=== PATIENT | male | born 1960 | race Caucasian/White ===

== ENCOUNTER 2023-10-26 14:12 | Emergency (ER) | payer OTHER, SELFPAY ==
[2023-10-26] VITALS (20 sets, daily range): BP systolic 84–130; BP diastolic 69–90; PULSE 63–84; RESP 12–20; TEMP 36.3; O2SAT 93–100
--- NOTE | ~2023-10-26 | XR_ITS ---
Portable chest x-ray Comparison: None Clinical History: Nausea, vomiting, dizziness Findings: Lungs are clear, without focal consolidation or pleural effusion. Cardiomediastinal silho uette is stable. Bones and soft tissues are unremarkable. Impression: Clear lungs. Reviewed, dictated and finalized at location . Impression: Clear lungs.
--- NOTE | ~2023-10-26 | CT_ITS ---
Non-contrast Head CT History: Syncope Technique: Axial non-contrast imaging of the brain was performed. Dose reduction technique was used on this scan by utilizing automated exposure control and iterative reconstruction technique. The dose -length product (DLP) was 681.00 mGy-cm. Findings: There is no evidence of intracranial hemorrhage, mass lesion, or acute infarct. Brain par enchyma appears normal. The ventricles and subarachnoid spaces are normal in size. The calvarium ap pears normal. The visualized paranasal sinuses and mastoid air cells are clear. Impression: No significant abnormality seen. Reviewed, dictated and finalized at location . Impression: No significant abnormality seen.
--- NOTE | 2023-10-26 14:25 | ED.GENADULT ---
HPI - General Adult General Chief complaint: Nausea/Vomiting/Diarrhea Stated complaint: weakness; dizzy Source: patient Mode of arrival: ambulatory Limitations: no limitations History of Present Illness HPI narrative: 63-year-old white male brought by EMS with low blood pressure vomiting nausea diaphoresis. EMS stated he vomited twice with in the ambulance on the way to the hospital he was given Zofran 4 mg IV was oriented x4 and alert blood pressure is 93/63 with a pulse of 70 normal sinus rhythm O2 sat was 94% he start him on normal saline 125 cc an hour his blood sugar was 109. He said they picked him up at his sister's house. Patient states he has been dizzy the last week and half. Denies any diarrhea he had a normal bowel movement this morning. It started about a week and half ago he felt dizzy could not stand felt really tired and exhausted. He said he had drunk some jennifer D unoriented drinking he said his heart was fast. Few days later he drinks more sun ED and happened again. Denies any cough shortness of breath swelling lumps or bumps sore throat. He has had a little bit of runny nose. Denies any pain. Denies any problems voiding or stooling. patient feels tired and fatigued. Denies any rash or itching bleeding or bruising or any other complaints . sister came in said that he came over at 10:30 a.m. this morning felt dizzy. Had not felt well for the last 4 days but was eating twice a day per his usual. They were eating a good meal and he suddenly felt dizzy he felt like he had a laid down which he did for just a little bit and then went back to the dinner table start EEA get then suddenly he started to feel queasy he started to closes eyes started to shake and lean over and lose his seated position. Family helped him to the ground he had a generalized seizure for 2-3 minutes was not incontinent did not bite his tongue. They put a blood pressure cuff on him it was low they called 911 and EMS found him with a blood pressure 93/63 diaphoretic nauseous patient had vomited the gravy and check in that he had eaten. Denies any palpitations or fast heart rate. Patient's remember that a couple months ago he did have a period where he felt dizzy and almost passed out. Patient has no history of seizures or family history of seizures. past medical history: On disability and retired for anxiety depression memory problems posttraumatic stress disorder. When off Xanax and August he had been taking it 3 times a day after 10 years he just decided to stop. Smokes occasional THC denies alcohol use. Smokes 1 pack a day. Allergies no known drug allergies Related Data Home Medications Medication Instructions Recorded Confirmed No Home Medications 10/26/23 10/26/23 Allergies Allergy/AdvReac Type Severity Reaction Status Date / Time No Known Allergies Allergy Verified 10/26/23 14:43 Review of Systems Review of Systems: All systems reviewed & are unremarkable except as noted in HPI and below Medical Decision Making MDM Narrative Medical decision making narrative: ? Patient placed in room: 2 by EMS ? History and physical was performed. Urinalysis specific gravity of 1.015 20-29 hyaline and granular casts, urine drug screen was positive for THC H&H was 13.139.5 with normal WBC and platelets. Normal CMP troponin lactic acid. chest x-ray and CT head showed no active disease Independent Historian: EMS sugar was 109 External Source Review: Differential Dx includes but not limited to: tumor brain electrolyte disturbance dehydration, substance of bruits cardiac arrhythmia Medications were Reviewed: on any home meds Medications given: Zofran 4, normal saline 2 L fluid, blood pressure at 3:58 p.m. was 107/81 with a map of 90 and a pulse 70. orthostatics prior to discharge were fine. Independently Interpreted by me: EKG: Normal sinus rhythm occasional PVC normal axis QTC [address] T wave abnormaliti
--- NOTE | 2023-10-26 14:34 | ECG_ITS ---
Test Date: 2023-10-26 14:38:45 Measurements Intervals [place] Rate: 68 P: 67 PA: 160 QRS: 43 QRSD: 97 T: 50 QT: 446 QTc: 477 Interpretive Statements SINUS RHYTHM WITH OCCASIONAL VENTRICULAR PREMATURE COMPLEXES PROLONGED QT INTERVAL No previous ECG available for comparison Electronically Signed On 10-28-2023 10:39:04 CDT by Lata Machado M.D.
[2023-10-26] MEDS: ONDANSETRON INJ 4 MG/2 ML VIAL IV PUSH (14:44)
[2023-10-26] MEDS: SODIUM CHLORIDE 0.9% IV 1,000 ML 999 ML IV CONT (14:45)
[2023-10-26 15:09] LABS: Hematocrit 39.5 % (40.0-54.0); Hemoglobin 13.1 g/dL (14.0-18.0); Mean Corpuscular HGB Conc 33.2 g/dL (32-36); Mean Corpuscular Volume 99.5 fL (78.0-102.0); Mean Platelet Volume 8.4 fl (8.7-11.0); Platelet Count Result 311 K/mm3 (150-420); Red Blood Count 3.97 M/mm3 (4.70-6.10); Red Cell Distribution Width 15.1 % (11.6-14.4); White Blood Count 9.1 K/mm3 (4.8-10.8)
[2023-10-26 15:22] LABS: Lactic Acid Reflex 1.4 mmol/L (0.4-2.0)
[2023-10-26 15:23] LABS: Alanine Aminotransferase 15 U/L (16-63); Albumin Level 3.8 g/dL (3.4-5.0); Alkaline Phosphatase 61 U/L (46-116); Anion Gap 9 mmol/L (4-12); Aspartate Amino Transferase 11 U/L (15-37); Bilirubin,Total 0.5 mg/dL (0.00-1.00); Blood Urea Nitrogen 10 mg/dL (7-18); Carbon Dioxide 30 mmol/L (21-32); Chloride 100 mmol/L (98-108); Estimated CRCL calculation 76 ml/min; Estimated Glomerular Filt Rate > 60; Ethanol < 3 mg/dL (0-6); Glucose 136 mg/dL (70-99); Magnesium 1.9 mg/dL (1.8-2.4); Osmolality Calculated 289 mOsm/kg (285-295); Potassium 3.6 mmol/L (3.5-5.1); Sodium 139 mmol/L (136-145); Total Protein 8.1 g/dL (6.4-8.2)
[2023-10-26 15:51] LABS: Influenza A QL RT-PCR Negative (Negative); Influenza B QL RT-PCR Negative (Negative); RSV RNA, RT-PCR Negative (Negative); SARS-CoV-2 RNA PCR Negative (Negative)
[2023-10-26 15:57] LABS: Appearance Urine Clear (Clear); Bilirubin Urine Negative (Negative); Blood Urine Negative (Negative); Color Urine Light Yellow (Yellow); Glucose Urine UA Negative (Negative); Ketones Urine Negative (Negative); Leukocyte Esterase Ur Negative LEU/UL (Negative); Nitrate Urine Negative (Negative); Protein Urine Trace (Negative); Specific Grav Ur 1.015 (1.010-1.020); Urobilinogen Urine 0.2 mg/dL (0.2-1.0)
[2023-10-26 16:03] LABS: Add Urine Microscopic? YES; Amorphous Sediment Urine Moderate; Amphetamine Screen Urine Negative (Negative); Barbiturate Screen Urine Negative (Negative); Benzodiazepines Screen Urine Negative (Negative); Cannabinoid Screen Urine Positive (Negative); Cocaine Screen Urine Negative (Negative); Granular Casts Urine 20-29 /lpf; Hyaline Casts Urine 20-29 /lpf; Methadone Screen Urine Negative (Negative); Mucus Urine Heavy /lpf; Opiate Screen Urine Negative (Negative); Phencyclidine Screen Urine Negative (Negative)
--- NOTE | 2023-11-02 15:30 | PC.NURSE ---
final blood cultures x2 reviewed. No growth after 5 days . No change in plan of care.
== END 2023-10-26 17:21 | disposition home or self-care (01) ==
PROVIDERS: Emergency Provider Emergency Medicine
DX: E86.0 Dehydration (principal); I95.9 Hypotension, unspecified; R55 Syncope and collapse; R56.9 Unspecified convulsions; F12.90 Cannabis use, unspecified, uncomplicated; Z20.822 Contact with and (suspected) exposure to COVID-19
CPT/HCPCS: 36415; 70450; 71045; 80053; 80307; 81001; 83605; 83735; 84484; 85027; 87040; 87637; 93005; 96361; 96374; 99284; J2405; J7030

== ENCOUNTER 2024-12-27 10:44 | Outpatient (CLI) | payer OTHER, SELFPAY ==
--- NOTE | 2024-12-27 11:14 | ECG_ITS ---
Test Date: 2024-12-27 11:20:11 Measurements Intervals [place] Rate: 54 P: 70 MI: 153 QRS: 47 QRSD: 100 T: 64 QT: 431 QTc: 410 Interpretive Statements SINUS BRADYCARDIA WITH SINUS ARRHYTHMIA BORDERLINE ECG COMPARED WITH PRIOR ECG 10-26-23 14:38 HEART RATE HAS DECREASED Electronically Signed On 12-27-2024 11:23:33 CDT by Ruben Britt D.O.
[2024-12-27 13:24] LABS: Alanine Aminotransferase 10 U/L (6-50); Albumin Level 4.6 g/dL (3.5-5.1); Alkaline Phosphatase 64 U/L (38-126); Anion Gap 6 mmol/L (4-12); Aspartate Amino Transferase 19 U/L (17-59); Bilirubin,Total 0.6 mg/dL (0.2-1.3); Blood Urea Nitrogen 17 mg/dL (9-20); Calcium 9.9 mg/dL (8.4-10.2); Carbon Dioxide 27 mmol/L (22-30); Chloride 107 mmol/L (98-107); Cholesterol 239 mg/dL (0-200); Estimated Glomerular Filt Rate > 60; Glucose 105 mg/dL (65-110); HDL Direct 41 mg/dL; Osmolality Calculated 291 mOsm/kg (285-295); Potassium 4.6 mmol/L (3.4-5.0); Sodium 140 mmol/L (137-145); Total Protein 8.8 g/dL (6.3-8.2); Triglycerides 228 mg/dL (<150)
== END 2024-12-27 10:45 | disposition home or self-care (01) ==
PROVIDERS: PCP Nurse Practitioner Family; Visit Provider Nurse Practitioner Family
DX: Z13.6 Encounter for screening for cardiovascular disorders (principal); E78.5 Hyperlipidemia, unspecified; I10 Essential (primary) hypertension; Z79.899 Other long term (current) drug therapy; I49.9 Cardiac arrhythmia, unspecified; R00.1 Bradycardia, unspecified; I49.8 Other specified cardiac arrhythmias
CPT/HCPCS: 36415; 80053; 80061; 82306; 93005